=== PATIENT | male | born 1985 | race Caucasian/White ===

== ENCOUNTER 2020-10-31 12:57 | Emergency (ER) | payer OTHER ==
[2020-10-31 13:45] LABS: RED BLOOD COUNT 5.01 M/UL (4.20-5.50); WHITE BLOOD COUNT 7.7 K/UL (4.5-11.0)
[2020-10-31 14:04] LABS: BUN/CREATININE RATIO 24 (0-10)
== END 2020-10-31 15:30 | disposition short-term general hospital (02) ==
LOC: ER1 12:57
PROVIDERS: Family Medicine
DX: S41.012A Laceration without foreign body of left shoulder, initial encounter (principal); F17.200 Nicotine dependence, unspecified, uncomplicated; W31.2XXA Contact with powered woodworking and forming machines, initial encounter; Z23 Encounter for immunization
CPT/HCPCS: 71045; 73030; 80053; 85025; 85610; 85730; 86850; 86900; 86901; 90471; 90715; 99284; J0690; J2270; J2405